=== PATIENT | male | born 1995 | race African-American/Black ===

== ENCOUNTER 2019-11-03 15:36 | Emergency (ER) | payer OTHER ==
--- NOTE | 2019-11-03 15:41 | ED Physician Documentation ---
History of Present Illness - Stated complaint Stated Complaint: DOG BITE - History obtained from History obtained from: Patient - History of Present Illness Timing: Prior to arrival Quality: tried to break up fight between his dog and another strange dog. Patient got bit by one or the other dog in right wrist and left hand. Pain at both areas, but no numbness nor weakness. Improved by: rest Worsened by: movement of hands and wrists. Associated symptoms: no numbness nor weakness. Review of Systems Constitutional: denies: Fever Nose: denies: Rhinorrhea / runny nose, Congestion Respiratory: denies: Cough Neurologic: denies: Focal weakness, Numbness, Altered mental status, Head injury PD PAST MEDICAL HISTORY - Past Medical History Cardiovascular: None Endocrine/Autoimmune: None - Present Medications Home Medications: Ambulatory Orders Medication Instructions Recorded Confirmed Amox/Clav 875/125 [Augmentin] 1 each PO BID #10 tablet 11/03/19 Hydrocodone/Acetaminophen 1 each PO Q6H PRN #12 tablet 11/03/19 [Hydrocodon-Acetaminophen 5-325] - Allergies Allergies/Adverse Reactions: Allergies Allergy/AdvReac Type Severity Reaction Status Date / Time No Known Drug Allergies Allergy Verified 11/03/19 15:43 PD ED PE NORMAL - Vitals Vital signs reviewed: Yes - General General: Alert and oriented X 3, No acute distress, Well developed/nourished - Cardiac Cardiac: RRR, No murmur - Respiratory Respiratory: Clear bilaterally - Derm Derm: Normal color, Warm and dry - Extremities Extremities: Other (right distal forearm and wrist with 2 puncture wounds dorsal forearm and lateral radial wrist. Not in main neurovascular area. Able to move wrist. No numbness nor weakness distally. No FBs and no ongoing bleeding. Left hand with 2 punctures around thenar area. No FB nor bleeding there either. Pain with movment but again no numbness nor weakness. Good color and cap refill. ) - Neuro Neuro: Alert and oriented X 3, No motor deficit, No sensory deficit, Normal speech Results - Vitals Vitals: Vital Signs - 24 hr 11/03/19 15:43 Temperature 36.7 C Heart Rate 69 Respiratory 14 Rate Blood Pressure 152/96 H O2 Saturation 98 Oxygen O2 Source Room air PD MEDICAL DECISION MAKING - ED course Complexity details: considered differential (bit in left hand and right wrist. N o numbness nor weakness. Bleeding stopped. full thickness punctures in arm/hand, so more at risk for infection and will go with abx. ), d/w patient Departure - Departure Disposition: 01 Home, Self Care Clinical Impression: Animal bite with open wound Condition: Stable Record reviewed to determine appropriate education?: Yes Instructions: ED Bite Dog Prescriptions: Amox/Clav 875/125 [Augmentin] 1 each PO BID #10 tablet Hydrocodone/Acetaminophen [Hydrocodon-Acetaminophen 5-325] 1 each PO Q6H PRN #12 tablet PRN Reason: pain Comments: Anti-inflammatory such as ibuprofen or naproxen 2-3 times daily for the next several days. Add Tylenol or hydrocodone if needed for pains. With the puncture wounds like this into hand and muscle, we do worry about infection and so take the Augmentin twice daily for 5 days to reduce the chance of that. Cleanse the wounds couple of times a day with soap and water and simple bandaging after that. Recheck if signs of infection. Otherwise likely will be sore over several days to week as the wounds are healing. Discharge Date/Time: 11/03/19 16:54
[2019-11-03 15:46] VITALS: BP 152/96
[2019-11-03] MEDS ORDERED: IBUPROFEN 600 MG TABLET PO STA (16:04)
[2019-11-03] MEDS ORDERED: oxyCODONE 5 MG TABLET PO STA (16:04)
[2019-11-03] MEDS ORDERED: AMOX/CLAV 875 MG/125 MG TABLET PO STA (16:05)
== END 2019-11-03 16:54 | disposition home or self-care (01) ==
LOC: ED 15:36
DX: S61.551A Open bite of right wrist, initial encounter (principal); S61.452A Open bite of left hand, initial encounter; W54.0XXA Bitten by dog, initial encounter; Y93.89 Activity, other specified
CPT/HCPCS: 99282; 99284; A9270

== ENCOUNTER 2021-02-23 12:38 | Emergency (ER) | payer OTHER ==
--- NOTE | 2021-02-23 13:06 | ED Physician Documentation ---
PD HPI BACK PAIN - Stated complaint Stated Complaint: BACK PX,SOA - Chief complaint Chief Complaint: Back Pain - History obtained from History obtained from: Patient - History of Present Illness Timing - onset: How many days ago (4) Timing - duration: Days (4) Timing - details: Abrupt onset (he had hiccups for about 20 minutes, and had onset of back muscle pain during that. Continues with the back pain on ROM. Some feeling of dyspnea, but mostly in that hurts in back for deep breaths. No cough.), Still present Location: Upper, Mid, Left Quality: Pain, Spasm. No: Tearing, Aching Associated symptoms: No: Fever, Weakness, Numbness Improves with: Rest Worsened by: Movement, Twisting, Other (deep breaths) Contributing factors: Other (onset when had 20 minute episode of hiccups) Similar symptoms before: Has not had sx before Review of Systems Constitutional: denies: Fever, Chills Nose: denies: Rhinorrhea / runny nose, Congestion Throat: denies: Sore throat Cardiac: denies: Palpitations, Pedal edema, Calf pain Respiratory: denies: Cough GI: denies: Abdominal Pain, Nausea, Vomiting Skin: denies: Rash, Lesions Musculoskeletal: denies: Extremity swelling Neurologic: denies: Near syncope PD PAST MEDICAL HISTORY - Past Medical History Cardiovascular: None Respiratory: None Endocrine/Autoimmune: None GI: None - Present Medications Home Medications: Ambulatory Orders Medication Instructions Recorded Confirmed Amox/Clav 875/125 [Augmentin] 1 each PO BID #10 tablet 11/03/19 Hydrocodone/Acetaminophen 1 each PO Q6H PRN #12 tablet 11/03/19 [Hydrocodon-Acetaminophen 5-325] Ibuprofen [Motrin] 600 mg PO TID PRN #20 tab 02/23/21 tiZANidine [Zanaflex] 4 mg PO Q8H PRN #20 tablet 02/23/21 - Allergies Allergies/Adverse Reactions: Allergies Allergy/AdvReac Type Severity Reaction Status Date / Time No Known Drug Allergies Allergy Verified 02/23/21 12:52 - Social History Does the pt smoke?: No Smoking Status: Never smoker PD ED PE NORMAL - Vitals Vital signs reviewed: Yes - General General: Alert and oriented X 3, No acute distress, Well developed/nourished - HEENT HEENT: Pharynx benign - Neck Neck: Supple, no meningeal sign, No adenopathy - Cardiac Cardiac: RRR, No murmur - Respiratory Respiratory: Clear bilaterally - Abdomen Abdomen: Normal bowel sounds, Soft, Non tender, Non distended - Back Back: No CVA TTP, No spinal TTP (has some tenderness in left infrascapular and medial scapular muscles area. No point tenderness. ) - Derm Derm: Normal color, Warm and dry Results - Vitals Vitals: Vital Signs - 24 hr 02/23/21 02/23/21 12:47 14:11 Temperature 36.0 C L Heart Rate 80 78 Respiratory 16 14 Rate Blood Pressure 145/88 H 138/87 H O2 Saturation 99 99 Oxygen O2 Source Room air - Rads (name of study) chest xray Radiology: Prelim report reviewed (normal), See rad report PD MEDICAL DECISION MAKING - ED course Complexity details: reviewed results (chest xray clear. ), considered differential (sounds likely muscular strain from the hiccups he had. CXR clear. ), d/w patient Departure - Departure Disposition: 01 Home, Self Care Clinical Impression: Acute thoracic back pain Qualifiers: Back pain laterality: left Qualified Code(s): M54.6 - Pain in thoracic spine Dyspnea Qualifiers: Dyspnea type: shortness of breath Qualified Code(s): R06.02 - Shortness of breath Condition: Stable Record reviewed to determine appropriate education?: Yes Instructions: ED Sprain Thoracic Spine Follow-Up: KATTY Jacobo [Provider Group] Prescriptions: Ibuprofen [Motrin] 600 mg PO TID PRN #20 tab PRN Reason: Pain tiZANidine [Zanaflex] 4 mg PO Q8H PRN #20 tablet PRN Reason: Spasms Comments: Your chest x-ray is clear without any signs of lung abnormality. Presume this is some muscular strain related to the hiccups you had and now having i nflammation and spasms. We will treated with anti-inflammatories and antispasmodics. To that add Tylenol every 4-6 hours as needed for pain. Off duty today and possibly tomorrow related to this. I would anticipate improvement over the next couple of days. Increase activity as able based on comfort. Forms: Activity restrictions Discharge Date/Time: 02/23/21 14:12
[2021-02-23] MEDS ORDERED: IBUPROFEN 600 MG TABLET PO STA (13:22)
[2021-02-23] MEDS ORDERED: ACETAMINOPHEN 325 MG TABLET PO STA (13:22)
[2021-02-23] MEDS ORDERED: methocarbamoL 500 MG TABLET PO STA (13:22)
--- NOTE | 2021-02-23 13:59 | XRAY Report ---
PROCEDURE: Chest 2 View X-Ray INDICATIONS: left chest/back pain, worse with breathing TECHNIQUE: 2 view(s) of the chest. COMPARISON: None. FINDINGS: Surgical changes and devices: None. Lungs and pleura: No pleural effusions or pneumothorax. Lungs are clear. Mediastinum: Mediastinal contours are normal. Heart size is normal. Bones and chest wall: No suspicious bony abnormalities. Soft tissues appear unremarkable. IMPRESSION: No acute pulmonary process. Reviewed by: Mishel Ritter MD on 02/23/2021 1:57 PM PDT Approved by: Mishel Ritter MD on 02/23/2021 1:57 PM PDT Station ID: [id number]
[2021-02-23 14:12] VITALS: BP 138/87
== END 2021-02-23 14:12 | disposition home or self-care (01) ==
LOC: ED 12:38
DX: M54.6 Pain in thoracic spine (principal); R06.02 Shortness of breath
CPT/HCPCS: 71046; 99283; 99284; A9270